=== PATIENT | male | born 1950 | race Caucasian/White ===

== ENCOUNTER 2017-11-13 08:40 | Day surgery (SDC) | payer MEDICARE ==
[~2017-11-13] VITALS: Ht 175.3 cm; Wt 149.8 kg
[~2017-11-13 08:40] MED LIST: ALFU10TA18 PO; ASCO500C6 PO; ASPI-12 PO; CYAN5000 PO; CYAN50003 PO; ESOM20CA31 PO; FINA5TAB41 PO; GLUC100019 PO; LOSA1TAB42 PO; METOPROL PO; OMEP20CA10 PO; PRAV20TA4 PO; SODIUM CHLORIDE 0.9% 1000ML 1,000 ML IV ONE
[2017-11-13 09:13] VITALS: BP 182/81
[2017-11-13] MEDS ORDERED: PROPOFOL 10 MG/ML 20ML VIAL IV ONE (09:44)
[2017-11-13 10:10] VITALS: BP 99/65
== END 2017-11-13 10:43 ==
LOC: ENDO 08:40 → DAH 08:40 → ENDO 10:43
PROVIDERS: ATTEND Internal Medicine Gastroenterology
DX: Z09 Encounter for follow-up examination after completed treatment for conditions other than malignant neoplasm (principal); Z86.010 Personal history of colon polyps; K57.30 Diverticulosis of large intestine without perforation or abscess without bleeding; K21.9 Gastro-esophageal reflux disease without esophagitis; I10 Essential (primary) hypertension; E78.5 Hyperlipidemia, unspecified; N40.0 Benign prostatic hyperplasia without lower urinary tract symptoms; M19.90 Unspecified osteoarthritis, unspecified site; Z79.899 Other long term (current) drug therapy; Z68.33 Body mass index [BMI] 33.0-33.9, adult; Z98.890 Other specified postprocedural states
CPT/HCPCS: 43235; G0105; 93005; A4606; J2704; J7030

== ENCOUNTER → 2022-05-12 | Outpatient (CLI) | payer MEDICARE ==
[~2022-05-12] MED LIST changes: -ALFU10TA18 PO; +ALFU10TA9 PO; -OMEP20CA10 PO; +OMEP20CA12 PO; -SODIUM CHLORIDE 0.9% 1000ML 1,000 ML IV ONE
== END | disposition home or self-care (01) ==
LOC: RAH 08:52
PROVIDERS: ATTEND Physical Medicine & Rehabilitation
DX: M48.062 Spinal stenosis, lumbar region with neurogenic claudication (principal); M47.816 Spondylosis without myelopathy or radiculopathy, lumbar region; N28.1 Cyst of kidney, acquired
CPT/HCPCS: 72148

== ENCOUNTER → 2025-07-30 | Outpatient (CLI) | payer OTHER ==
[~2025-07-30] MED LIST changes: +ALFU10TA46 PO; -ALFU10TA9 PO; +ASCO500C19 PO; -ASCO500C6 PO; -CYAN50003 PO; +CYAN50007 PO; -PRAV20TA4 PO; +PRAV20TA59 PO
--- NOTE | 2025-07-31 07:53 | HMCIMG ---
EXAM: CT Cardiac calcium scoring. CLINICAL HISTORY: CAD screening. TECHNIQUE: Thin collimated axial CT cardiac images were obtained. A CT scan is done according to ALARA (As Low As Reasonably Achievable). CONTRAST: None. COMPARISON: None provided. FINDINGS: Calcium Score: VESSEL Number of lesions Volume mm3 Equi. Mass/mg Calcium score LM 1 53.7 --.-- 65.5 LAD 9 261.2 -.-- 405.3 LCX 1 17.5 --.-- 25 RCA 7 1361.5 --.-- 1667.8 Total 18 1694.0 --.-- 2163.6 IMPRESSION: The calcium score is 2163.6. This places the patient above 90th percentile in comparison to a group of patients asymptomatic for coronary artery disease with the same age and gender. This means that >90% of males aged >74 have a calcium score that is lower than the patient's. /Spring
== END | disposition home or self-care (01) ==
LOC: RAH 11:02
PROVIDERS: ATTEND Internal Medicine Cardiovascular Disease
DX: Z13.6 Encounter for screening for cardiovascular disorders (principal); I25.10 Atherosclerotic heart disease of native coronary artery without angina pectoris
CPT/HCPCS: 75571